=== PATIENT | male | born 1960 | race Caucasian/White ===

== ENCOUNTER → 2020-02-01 | Outpatient (CLI) | payer BC | LOC: GMAJ 13:07 | PROVIDERS: ATTEND Family Medicine | DX: E29.1 Testicular hypofunction (principal) ==

== ENCOUNTER → 2020-04-18 | Outpatient (CLI) | payer BC | LOC: GMAL 11:33 | PROVIDERS: ATTEND Family Medicine | DX: E29.1 Testicular hypofunction (principal); R53.81 Other malaise; R53.83 Other fatigue; E11.9 Type 2 diabetes mellitus without complications; I10 Essential (primary) hypertension ==

== ENCOUNTER → 2020-04-25 | Outpatient (CLI) | payer BC ==
--- NOTE | 2020-04-25 09:05 | US ---
EXAM: Carotid Duplex CLINICAL HISTORY: I65.29. OCCLUSION AND STENOSIS OF UNSPECIFIED CAROTID ARTERY COMPARISON STUDY: None. TECHNICAL: Ultrasound, color-flow, and Doppler evaluation of the carotid arteries was performed. FINDINGS: Mild atherosclerotic plaque is seen within the common and internal carotid arteries. There are no flow velocity elevations within the common or internal carotid arteries that would suggest a stenosis. There is no measurable significant stenosis. The vertebral arteries show antegrade flow. The maximum systolic flow velocity within the right common carotid artery is 103 cm/s and 93 cm/s on the left. The maximum flow velocity within the right internal carotid artery is 70 cm/s and 78 cm/s on the left. The right ICA/CCA ratio 0.7 and the left 0.8. IMPRESSION: MILD ATHEROSCLEROTIC PLAQUE WITHOUT A HEMODYNAMIC SIGNIFICANT STENOSIS OF GREATER THAN 40%. Electronically signed by: Kermit Zuleta MD 04/25/2020 9:03 AM [facility]
== END ==
LOC: US 07:41
PROVIDERS: ATTEND Family Medicine
DX: I65.23 Occlusion and stenosis of bilateral carotid arteries (principal)